=== PATIENT | male | born 1995 | race Caucasian/White ===

== ENCOUNTER 2018-12-23 20:14 | Emergency (ER) | payer BC ==
--- NOTE | 2018-12-23 20:33 | EDM.PDOC ---
ED HPI GENERAL MEDICAL PROBLEM - General Chief Complaint: Chest Pain Stated Complaint: CHEST PAIN,HOT,LIGHT HEADED Time Seen by Provider: 12/23/18 20:31 Source of Information: Reports: Patient History Limitations: Reports: No Limitations - History of Present Illness INITIAL COMMENTS - FREE TEXT/NARRATIVE: 23-year-old male presents to the ED with just generally not feeling well. 2 and half to 3 days. He reports fairly sudden onset of illness with fever chills and development of a nonproductive cough and a bad headache. Decreased appetite the last 2 days. Still been able to work. Does have some mild generalized myalgia. States there is no sputum produced by the cough. However the cough is worsened at nighttime and is been unable to sleep. He took 1 Tylenol 325 mg about a half or before coming to the ED. Second problem is palpitations feel like his heart is racing at times. Delayed lightheaded and dizzy at times as well. Feels generally weak. No nausea vomiting or diarrhea. Poor oral intake over the last couple of days due to lack of appetite. Third problem is a lot of heartburn. He takes no medicine for this. Did have quite bad heartburn and lower retrosternal chest pain or to coming to the ED tonight. Onset: Sudden Onset Date: 12/21/18 Duration: Day(s):, Getting Worse Location: Reports: Chest (Paroxysmal nonproductive cough), Generalized ( Normalized aches and pains and headache.) Quality: Reports: Ache, Other Severity: Moderate (Throbbing headache) Improves with: Reports: Medication (Tylenol seems to help) Worsens with: Reports: Other Context: Denies: Activity (Certain activities and exertion seemed to make the headache worse), Exercise, Lifting, Sick Contact, Trauma, Other Associated Symptoms: Reports: Chest Pain, Cough, Fever/Chills, Headaches, Loss of Appetite, Malaise, Weakness. Denies: No Other Symptoms, Confusion (Gets a lot of heartburn and has lower retrosternal chest pressure discomfort.), cough w sputum, Diaphoresis, Nausea/Vomiting, Rash, Seizure, Shortness of Breath, Syncope Treatments [employer]: Reports: Acetaminophen Left Chest Pain Score (Numeric/FACES): 5 - Related Data Allergies Allergy/AdvReac Type Severity Reaction Status Date / Time No Known Allergies Allergy Verified 12/23/18 20:29 Home Meds: Home Meds Cetirizine HCl [Zyrtec] 10 mg PO DAILY 12/23/18 [History] Hydrocodone/Chlorphen P-Stirex [Tussionex Pennkinetic Susp] 5 ml PO DAILY PRN # 30 ml 12/23/18 [Rx] Omeprazole Magnesium [Prilosec Otc] 20 mg PO DAILY #30 tablet. 12/23/18 [Rx] Past Medical History Respiratory History: Reports: Other (See Below) Other Respiratory History: seasonal allergies Social & Family History - Living Situation & Occupation Living situation: Reports: Single Occupation: Employed ED ROS GENERAL - Review of Systems Review Of Systems: See Below Constitutional: Reports: Fever, Chills, Malaise, Weakness, Fatigue, Decreased Appetite HEENT: Reports: Throat Pain (Mild) Respiratory: Reports: Cough. Denies: Shortness of Breath, Wheezing, Pleuritic Chest Pain (Paroxysmal nonproductive cough), Hemoptysis Cardiovascular: Reports: Chest Pain (Lower retrosternal chest pain from heartburn more than anything.), Lightheadedness. Denies: Blood Pressure Problem , Claudication, Dyspnea on Exertion, Edema, Orthopnea Endocrine: Reports: Fatigue GI/Abdominal: Reports: Decreased Appetite : Reports: No Symptoms Musculoskeletal: Reports: Muscle Pain (Generalized myalgia.) Skin: Reports: No Symptoms Neurological: Reports: Dizziness, Headache, Weakness. Denies: Confusion, Numbness, Paresthesia, Pre-Existing Deficit, Seizure, Syncope, Tingling, Tremors , Trouble Speaking, Difficulty Walking, Change in Speech, Gait Disturbance Psychiatric: Reports: No Symptoms Hematologic/Lymphatic: Reports: No Symptoms Immunologic: Reports: No Symptoms ED EXAM, GENERAL - Physical Exam Exam: See Below Exam Limited By: No Limitations General Appearance: Alert, WD/WN, No Apparent Distress, Other (He does feel warm to palpation. Nurses reported temperature 36.6 and he feels warmer than this.) Eye Exam: Bilateral Eye: Normal Inspection Ears: Normal External Exam, Normal TMs Nose: Normal Inspection, Normal Mucosa, No Blood Throat/Mouth: Normal Inspection, Normal Lips (There is slight erythema of the posterior oropharynx I believe more from coughing that anything. No exudate), Normal Teeth, Normal Voice, Other Head: Atraumatic, Normocephalic Neck: Normal Inspection, Supple, Non-Tender, Full Range of Motion. No: Lymphadenopathy (L), Lymphadenopathy (R) Respiratory/Chest: No Respiratory Distress, Lungs Clear, Normal Breath Sounds ( O2 sats are 100% on room air), No Accessory Muscle Use, Chest Non-Tender, Respiratory Distress (Mild tachypnea at rest 20/m.) Cardiovascular: Normal Peripheral Pulses, Regular Rate, Rhythm, No Edema, No Gallop, No Murmur, No Rub, JVD Peripheral Pulses: 3+: Posterior Tibial (L), Posterior Tibial (R), Dorsalis Pedis (L), Dorsalis Pedis (R) GI/Abdominal: Normal Bowel Sounds, Soft, Non-Tender, No Organomegaly, No Distention, No Abnormal Bruit, No Mass, Pelvis Stable, Other (No surgical scars) . No: Guarding, Rigid, Rebound, Tender Back Exam: Normal Inspection, Full Range of Motion. No: CVA Tenderness (L), CVA Tenderness (R) Extremities: Normal Inspection, Normal Range of Motion, Non-Tender, No Pedal Edema, Normal Capillary Refill Neurological: Alert, Oriented, CN II-XII Intact, Normal Cognition Psychiatric: Normal Affect, Normal Mood Skin Exam: Warm, Dry, Intact, Normal Color, No Rash EKG INTERPRETATION EKG Date: 12/23/18 Time: 20:46 Rhythm: NSR Rate (Beats/Min): 61 [place]: Normal P-Wave: Present QRS: Normal ST-T: Other (Diffuse early repolarization pattern. No signs of true ischemia.) EKG Interpretation Comments: Normal ECG Course - Vital Signs Last Recorded V/S: Last Vital Signs Temp 36.6 C 12/23/18 20:32 Pulse 77 12/23/18 20:32 Resp 20 12/23/18 20:32 BP 115/75 12/23/18 20:32 Pulse Ox 100 12/23/18 20:32 - Orders/Labs/Meds Orders: Active Orders 24 hr Category Date Time Status EKG Documentation Completion [RC] STAT Care 12/23/18 20:40 Active Orthostatic Vital Signs [RC] ASDIRECTED Care 12/23/18 20:51 Active Chest 1V Frontal [CR] Stat Exams 12/23/18 20:40 Taken Dextrose 5%-0.9% NaCl [Dextrose 5%-Normal Saline] 1,000 Med 12/23/18 20:45 Active ml IV ASDIRECTED Ketorolac [Toradol] Med 12/23/18 20:45 Active 30 mg IVPUSH ONETIME Medication Orders Dextrose/Sodium Chloride (Dextrose 5%-Normal Saline) 1,000 mls @ 999 mls/hr IV ASDIRECTED ADRIANO Last Admin: 12/23/18 20:52 Dose: 999 mls/hr Ketorolac Tromethamine (Toradol) 30 mg IVPUSH ONETIME ADRIANO Last Admin: 12/23/18 20:53 Dose: 30 mg Labs: Laboratory Tests 12/23/18 12/23/18 12/23/18 Range/Units 20:55 20:55 20:55 WBC 6.08 (4.23-9.07) K/mm3 RBC 5.52 (4.63-6.08) M/mm3 Hgb 16.4 (13.7-17.5) gm/L Hct 47.7 (40.1-51.0) % MCV 86.4 (79.0-92.2) fl MCH 29.7 (25.7-32.2) pg MCHC 34.4 (32.2-35.5) g/dl RDW Std Deviation 38.9 (35.1-43.9) fL Plt Count 301 (163-337) K/mm3 MPV 9.4 (9.4-12.3) fl Neutrophils % (Manual) 44 (40-60) % Band Neutrophils % 0 (0-10) % Lymphocytes % (Manual) 38 (20-40) % Atypical Lymphs % 4 % Monocytes % (Manual) 9 (2-10) % Eosinophils % (Manual) 5 (0.8-7.0) % Basophils % (Manual) 0 L (0.2-1.2) Platelet Estimate Adequate Plt Morphology Comment Normal RBC Morph Comment Normal Sodium 141 (136-145) mEq/L Potassium 3.8 (3.5-5.1) mEq/L Chloride 102 (98-107) mEq/L Carbon Dioxide 30 (21-32) mEq/L Anion Gap 12.8 (5-15) BUN 17 (7-18) mg/dL Creatinine 1.1 (0.7-1.3) mg/dL Est Cr Clr Drug Dosing 113.66 mL/min Estimated GFR (MDRD) > 60 (>60) mL/min BUN/Creatinine Ratio 15.5 (14-18) Glucose 103 (74-106) mg/dL Calcium 9.2 (8.5-10.1) mg/dL Total Bilirubin 0.9 (0.2-1.0) mg/dL AST 22 (15-37) U/L ALT 42 (16-63) U/L Alkaline Phosphatase 53 (46-116) U/L C-Reactive Protein < 0.2 (<1.0) mg/dL Total Protein 7.8 (6.4-8.2) g/dl Albumin 4.3 (3.4-5.0) g/dl Globulin 3.5 gm/dL Albumin/Globulin Ratio 1.2 (1-2) H. pylori IgG Antibody Negative (NEGATIVE) Meds: Medications Generic Name Dose Route Start Last Admin Trade Name Freq PRN Reason Stop Dose Admin Dextrose/Sodium Chloride 1,000 mls @ 999 mls/hr 12/23/18 20:45 12/23/18 20:52 Dextrose 5%-Normal Saline IV 999 mls/hr ASDIRECTED ADRIANO Administration Ketorolac Tromethamine 30 mg 12/23/18 20:45 12/23/18 20:53 Toradol IVPUSH 30 mg ONETIME ADRIANO Administration Discontinued Medications Generic Name Dose Route Start Last Admin Trade Name Freq PRN Reason Stop Dose Admin Famotidine 20 mg 12/23/18 20:39 12/23/18 20:55 Pepcid PO 12/23/18 20:40 20 mg ONETIME ONE Administration Pantoprazole Sodium 40 mg 12/23/18 21:46 Protonix PO 12/23/18 21:47 ONETIME ONE Promethazine HCl/Codeine 15 ml 12/23/18 21:46 Phenergan With Codeine PO 12/23/18 21:47 ONETIME ONE - Radiology Interpretation Free Text/Narrative:: 23-year-old male presents to the ED with not feeling well for the last 2 and half days. States does have a paroxysmal nonproductive cough. Associated headache and generalized myalgia consistent with flulike symptoms. He has chronic heartburn which has been worse the last few days aggravated by coughing. He hasn't take any medication for this. Was quite bad before coming into the ED with a lot of retrosternal chest pain. He also feels that his heart is racing at times particularly earlier today. On the monitor he sinus at 74/m. An ECG will be done. States the cough is nonproductive. Has had decreased appetite. He is working long hours 15-16 hours and not sleeping very well due to cough. Plan: He will have ECG done. One view chest x-ray. Influenza screen. Orthostatic vital signs. IV will be D5 normal saline at open. Given Toradol 30 mg IV for headache and body ache relief. He took 08/30/24 milligram Tylenol before coming into the ED. Given Pepcid 20 mg by mouth. Labs to be done to include H. pylori. - Re-Assessments/Exams Free Text/Narrative Re-Assessment/Exam: 12/23/18 21:18 portable chest x-ray completed. He is rotated slightly to the right. This next makes the left atrium look a little more prominent than normal. Otherwise the chest x-ray is within normal limits. Clear lung overton and normal cardiac silhouette. 12/23/18 21:39 White count is 6.08 differential pending. Hemoglobin is 16.4 with hematocrit of 47.7 suggesting mild hemoconcentration. Platelet count is 301 ,000. Sodium 141 with potassium of 3.8. Cord 102 bicarbonate 30. Anion gap is 12.8. BUNs 17 with a creatinine of 1.1. GFR is greater than 60. Glucose is 103. Calcium is 9.2. Liver function is normal. C-reactive protein is less than 0.2. Total protein 7.8 with an albumin fraction of 4.3. H. pylori is negative. Influence of screen is also negative. 12/23/18 21:44 Discussed the findings with the patient. Appears that he does have a viral bronchitis at present that is aggravating his reflux disease due to coughing. I'm going to place him on Prilosec 20 mg every day at bedtime for reflux prevention. Cough syrup will be Phenergan With Codeine 15 mils given in the ED now. Prescription prescription will be written for Tussionex 5 mils at bedtime as needed for cough relief the next 5-6 days. 12/23/18 21:56 Differential is now back on the white count. 48% neutrophils and 38% lymphocytes. Departure - Departure Time of Disposition: 21:47 Disposition: Home, Self-Care 01 Condition: Fair Clinical Impression: Viral upper respiratory tract infection with cough, Chronic gastroesophageal reflux disease - Discharge Information *PRESCRIPTION DRUG MONITORING PROGRAM REVIEWED*: Not Applicable *COPY OF PRESCRIPTION DRUG MONITORING REPORT IN PATIENT JUANJO: Not Applicable Prescriptions: Hydrocodone/Chlorphen P-Stirex [Tussionex Pennkinetic Susp] 5 ml PO DAILY PRN # 30 ml PRN Reason: Cough relief Omeprazole Magnesium [Prilosec Otc] 20 mg PO DAILY #30 tablet.dr Instructions: Upper Respiratory Infection, Adult, [id number], Gastroesophageal Reflux Disease, Adult Referrals: PCP,None [Primary Care Provider] - Forms: ED Department Discharge Additional Instructions: Evaluation in the emergency room tonight in regards to illness for the last 2-1/ 2 days causing your heart to feel like it is racing at times. I believe this is associated with fever. Aggravated by being dehydrated leonid as well. Influenza screen proved to be negative. Chest x-ray was clear with no signs of pneumonia. Lab tests suggest viral bronchitis or viral upper spine Moi tract infection. Cough is aggravating your ability to sleep. You received a liter of IV fluids in the ED for rehydration purposes. Toradol 30 mg IV for headache and body ache relief. Secondly were investigated for severe reflux disease. Helicobacter pylori 80s of bacteria that can grow the stomach and be associated with reflux disease and it proved to be negative. Therefore you have a mechanical problem with the valve at the lower end of your food pipe that is open most the time allows acid reflux in the stomach up into the lower food pipe at any time. Over time this can cause narrowing of the food pipe called a stricture and can cause cancer cells to form in the lower part of the food pipe over a period of 25 years. Suggest treatment with Prilosec 20 mg every night at bedtime. Continue Tylenol 1000 mg every 6 hours as needed for fever relief. Cough syrup given in the ED was Phenergan With Codeine. Prescription written for Tussionex cough syrup 5 mils about an hour before going to bed as it takes an hour to work until cough is gone. Expect gradual improvement over the next 3-5 days. - My Orders Last 24 Hours: My Active Orders 12/23/18 20:40 EKG Documentation Completion [RC] STAT Chest 1V Frontal [CR] Stat 12/23/18 20:45 Dextrose 5%-0.9% NaCl [Dextrose 5%-Normal Saline] 1,000 ml IV ASDIRECTED Ketorolac [Toradol] 30 mg IVPUSH ONETIME 12/23/18 20:51 Orthostatic Vital Signs [RC] ASDIRECTED - Assessment/Plan Last 24 Hours: My Active Orders 12/23/18 20:40 EKG Documentation Completion [RC] STAT Chest 1V Frontal [CR] Stat 12/23/18 20:45 Dextrose 5%-0.9% NaCl [Dextrose 5%-Normal Saline] 1,000 ml IV ASDIRECTED Ketorolac [Toradol] 30 mg IVPUSH ONETIME 12/23/18 20:51 Orthostatic Vital Signs [RC] ASDIRECTED
[2018-12-23] MEDS ORDERED: Famotidine 20 MG Tab PO ONE (20:39)
[2018-12-23] MEDS ORDERED: Dextrose 5%-0.9% NaCl 1,000 ML IV SCH (20:45)
[2018-12-23] MEDS ORDERED: Ketorolac 30 MG/ML SDV IVPUSH SCH (20:45)
[2018-12-23] MEDS ORDERED: Pantoprazole 40 MG Tab.CR PO ONE (21:46)
[2018-12-23] MEDS ORDERED: Codeine/Promethazine 10-6.25 MG/5 ML Syrup 5 ML UD Cup PO ONE (21:46)
--- NOTE | 2018-12-24 06:55 | CR ---
Chest: Portable view of the chest was obtained. Comparison: No prior chest x-ray. Heart size and mediastinum are normal. Lungs are clear. Bony structures are grossly intact. Impression: 1. Nothing acute is identified on portable chest x-ray. Diagnostic code #1
== END 2018-12-23 22:07 | disposition home or self-care (01) ==
LOC: JD.ED 20:14
DX: K21.9 Gastro-esophageal reflux disease without esophagitis (principal); J06.9 Acute upper respiratory infection, unspecified; Z79.899 Other long term (current) drug therapy
CPT/HCPCS: 36415; 71045; 80053; 85007; 85027; 86140; 86677; 87804; 93005; 96374; 99285; A9270; J1885; J7042; 93010; 99284